=== PATIENT | female | born 1975 | race Caucasian/White ===

== ENCOUNTER 2020-01-16 16:57 | Emergency (ER) | payer BC ==
[~2020-01-16] VITALS: Ht 147.3 cm; Wt 54.4 kg
[2020-01-16] MEDS ORDERED: PROZAC20 M1 PO (17:10)
[2020-01-16] MEDS ORDERED: VISTARIL50 MG PO (17:11)
[2020-01-16] MEDS ORDERED: TRAMADOL 50 MG50 MG PO (17:11)
[2020-01-16] MEDS ORDERED: ONDANSETRON HCL4 M2 PO (18:30)
[2020-01-16] MEDS ORDERED: NORCO 5-325 TA1 EAC2 PO (18:38)
[2020-01-16 18:46] VITALS: BP 126/87
== END 2020-01-16 18:46 | disposition home or self-care (01) ==
LOC: M.ERS 16:57
DX: S06.0X0A Concussion without loss of consciousness, initial encounter (principal); S00.83XA Contusion of other part of head, initial encounter; Z90.710 Acquired absence of both cervix and uterus; Z90.49 Acquired absence of other specified parts of digestive tract; Z88.2 Allergy status to sulfonamides; W01.0XXA Fall on same level from slipping, tripping and stumbling without subsequent striking against object, initial encounter; Y93.89 Activity, other specified; Y92.89 Other specified places as the place of occurrence of the external cause; Y99.8 Other external cause status